=== PATIENT | female | born 1960 | race Caucasian/White ===

== ENCOUNTER → 2020-12-18 | Outpatient (CLI) | payer OTHER ==
[~2020-12-18] MED LIST: CRUTCH4 USE; CYCL10 PO; DOXY100 PO; HYDACE5 PO; IBUP800 PO; PRED10 PO; Zovirax800 MG PO
[2020-12-18 19:17] LABS: Microalb/Creat Ratio UR, Rand Unable to Calculate mg/g (0.000-30.000); Microalbumin, Random Urine <5.000 mg/L (0.000-20.000)
== END | disposition home or self-care (01) ==
LOC: LAB SHORT 14:56 → LAB 14:56
PROVIDERS: Internal Medicine
DX: E11.42 Type 2 diabetes mellitus with diabetic polyneuropathy (principal)
CPT/HCPCS: 82043; 82570

== ENCOUNTER → 2021-01-05 | Outpatient (CLI) | payer OTHER | END | disposition home or self-care (01) | LOC: LAB SHORT 17:07 → LAB 17:07 | DX: N39.0 Urinary tract infection, site not specified (principal) | CPT/HCPCS: 87077; 87086; 87186 ==

== ENCOUNTER → 2021-06-17 | Outpatient (CLI) | payer OTHER | END | disposition home or self-care (01) | LOC: LAB SHORT 13:34 → LAB 13:34 | DX: N39.0 Urinary tract infection, site not specified (principal) | CPT/HCPCS: 87077; 87086; 87186 ==

== ENCOUNTER → 2022-04-15 | Outpatient (CLI) | payer OTHER | END | disposition home or self-care (01) | LOC: LAB 10:16 → LAB SHORT 10:16 | DX: N39.0 Urinary tract infection, site not specified (principal) | CPT/HCPCS: 87086 ==

== ENCOUNTER → 2024-06-05 | Outpatient (CLI) | payer OTHER ==
[2024-06-05 12:41] LABS: BASOPHILS ABSOLUTE AUTO 0.02 K/mm3 (0.00-0.23); BASOPHILS PERCENT AUTO 0 % (0-2); EOSINOPHILS ABSOLUTE AUTO 0.08 K/mm3 (0.00-0.68); EOSINOPHILS PERCENT AUTO 1 % (0-6); Hematocrit 40.3 % (33.0-51.0); Hemoglobin 13.5 g/dL (11.5-16.0); IMMATURE GRAN ABSOLUTE AUTO 0.11 K/mm3 (0.00-0.10); IMMATURE GRAN PERCENT AUTO 1 % (0-1); LYMPHOCYTES PERCENT AUTO 20 % (21-46); MONOCYTES ABSOLUTE AUTO 0.67 K/mm3 (0.16-1.47); MONOCYTES PERCENT AUTO 6 % (4-13); Mean Corpuscular HGB 27.8 pg (26.0-34.0); Mean Corpuscular HGB Conc 33.5 g/dL (31.5-36.5); Mean Corpuscular Volume 83 fL (80-100); NEUTROPHILS PERCENT AUTO 73 % (41-73); Platelet Count 344 K/mm3 (150-400); RDW Standard Deviation 39.2 fL (35.1-46.3); Red Blood Cell Count 4.86 M/mm3 (3.80-5.20); White Blood Cell Count 11.68 K/mm3 (4.00-11.30)
[2024-06-05 12:49] LABS: Albumin, Blood 3.9 g/dL (3.4-5.0); Albumin/Globulin Ratio 1.1 (0.8-1.8); Bilirubin, Total 1.9 mg/dL (0.1-1.0); Bun/Creatinine Ratio 16.3 (12.0-20.0); Calcium, Blood 9.3 mg/dL (8.5-10.1); Creatinine, Blood 0.98 mg/dL (0.40-1.00); Globulin, Blood 3.7 g/dL (2.2-4.0); Potassium, Blood 4.2 mmol/L (3.5-5.5); Total Protein, Blood 7.6 g/dL (6.4-8.2)
== END ==
LOC: LAB 12:35 → LAB SHORT 12:35
PROVIDERS: Emergency Medicine
DX: R10.84 Generalized abdominal pain (principal); R10.13 Epigastric pain
CPT/HCPCS: 80053; 83690; 84484; 85025

== ENCOUNTER 2024-09-06 06:44 | Day surgery (SDC) | payer OTHER ==
[2024-09-06] VITALS (8 sets, daily range): BP systolic 112–157; BP diastolic 64–91
[~2024-09-06] VITALS: Ht 157.5 cm; Wt 116.0 kg
[2024-09-06] MEDS ORDERED: Bupivacaine 0.5% HCl 5 MG/ML 30MLVIAL ONE (07:03)
[2024-09-06] MEDS ORDERED: NS 1,000 ML IV ONE ×2 (07:03→07:29)
[2024-09-06] MEDS ORDERED: BUPROPION XL150 M1 PO (07:21)
[2024-09-06] MEDS ORDERED: LOSA25 PO (07:21)
[2024-09-06] MEDS ORDERED: CELE100 PO (07:21)
[2024-09-06] MEDS ORDERED: METF500 PO (07:22)
[2024-09-06] MEDS ORDERED: MELO7.5 PO (07:22)
[2024-09-06] MEDS ORDERED: Crestor40 MG PO (07:23)
[2024-09-06] MEDS ORDERED: Ondansetron HCl 2 MG / ML 2ML Vial ONE (07:28)
[2024-09-06] MEDS ORDERED: Midazolam HCl 1MG / ML 2ML Vial ONE (07:29)
[2024-09-06] MEDS ORDERED: FentaNYL Citrate 50 MCG/ML 2 ML Injection ONE (07:29)
[2024-09-06] MEDS ORDERED: Dexamethasone Sodium Phosphate 4 MG/ML 1ML Vial XX SCH ×3 (07:45→09:00)
[2024-09-06] MEDS ORDERED: Dexamethasone Sodium Phosphate 4 MG/ML 5ML VIAL XX SCH (08:55)
--- NOTE | 2024-09-06 10:19 | NUR ---
Patient to recovery room at 0944 s/p bilateral geniculate nerve cryablation. Patient tolerated procedure well, awake and alert t/o entire procedure. VSS. Patient denies pain to left knee. Right knee 5/10 pain which is improved from pre procedure. Patient had pre proceure chronic pain 9/10 to both knees. Patient serge food/fluids. Patient to follow up with Dr. Carrera in 2 weeks, message left with office.
--- NOTE | 2024-09-06 10:38 | NUR ---
DR JOHNSON IN TO CHECK ON PATIENT.
--- NOTE | 2024-09-06 11:03 | NUR ---
Patient ambulated about 50 steps to restroom, tolerated well.
--- NOTE | 2024-09-06 11:43 | NUR ---
VERBAL AND WRITTEN DISCHARGE INFORMATION GIVEN WITH CLEAR UNDERSTANDING. PATIENT DISCHARGED IN STABLE CONDITION AT 1155 PATIENT ESCORTED OUT VIA WHEELCHAIR IN CARE OF HER DAUGHTER.
== END 2024-09-06 12:00 | disposition home or self-care (01) ==
LOC: MHTC 06:44
DX: M25.562 Pain in left knee (principal); M25.561 Pain in right knee; G89.29 Other chronic pain; E11.9 Type 2 diabetes mellitus without complications; I10 Essential (primary) hypertension; E78.5 Hyperlipidemia, unspecified; E66.01 Morbid (severe) obesity due to excess calories; Z68.42 Body mass index [BMI] 45.0-49.9, adult; Z87.891 Personal history of nicotine dependence; Z79.1 Long term (current) use of non-steroidal anti-inflammatories (NSAID); Z79.84 Long term (current) use of oral hypoglycemic drugs; Z79.899 Other long term (current) drug therapy; Z88.0 Allergy status to penicillin; Z88.5 Allergy status to narcotic agent; Z88.8 Allergy status to other drugs, medicaments and biological substances; Z91.048 Other nonmedicinal substance allergy status
CPT/HCPCS: 0441T; 77013; 99152; 99153; C2618; J1100; J2250; J2405; J3010; J7030

== ENCOUNTER → 2024-09-15 | Outpatient (CLI) | payer OTHER ==
[~2024-09-15] MED LIST changes: +BUPROPION XL150 M1 PO; +CELE100 PO; +Crestor40 MG PO; +LOSA25 PO; +MELO7.5 PO; +METF500 PO
[2024-09-15 14:50] LABS: Creatinine, Urine Random 36.6 mg/dL (27.00-270.00); Microalb/Creat Ratio UR, Rand 26.366 mg/g (0.000-30.000); Microalbumin, Random Urine 9.65 mg/L (0.000-20.000)
== END | disposition home or self-care (01) ==
LOC: LAB 12:13 → LAB SHORT 12:13
PROVIDERS: Internal Medicine
DX: E11.42 Type 2 diabetes mellitus with diabetic polyneuropathy (principal)
CPT/HCPCS: 82043; 82570

== ENCOUNTER → 2024-12-19 | Outpatient (CLI) | payer OTHER ==
[2024-12-19 19:44] LABS: Bacterial Vaginosis PCR Negative (NEGATIVE); Candida glabrata-krusei, PCR NOT DETECTED (NOT DETECT)
[2024-12-19 20:16] LABS: Candida Group, PCR DETECTED (NOT DETECT)
== END ==
LOC: LAB 15:26 → LAB SHORT 15:26
PROVIDERS: Obstetrics & Gynecology
DX: B37.31 Acute candidiasis of vulva and vagina (principal)
CPT/HCPCS: 81515